=== PATIENT | male | born 1960 | race American Indian/Alaskan Native ===

== ENCOUNTER 2017-05-02 21:31 | Emergency (ER) | payer MEDICAID, OTHER ==
[~2017-05-02] VITALS: Ht 172.7 cm; Wt 77.0 kg
[2017-05-02] MEDS ORDERED: sulfamethoxazole/trimethoprim DS (800/160mg) tablet PO ONE (22:20)
[2017-05-02] MEDS ORDERED: TETanus/Pertussis (Acell)/Diphther VAC/PF (Tdap-Adult) 0.5ml syringe IMVAC ONE (22:20)
[2017-05-02] MEDS ORDERED: ondansetron 4mg rapidly disintigrating tab PO ONE (22:20)
[2017-05-03] MEDS ORDERED: amLODIPine 5mg tablet PO ONE
[2017-05-03] MEDS ORDERED: CEPH250T PO (01:07)
[2017-05-03] MEDS ORDERED: cephalexin 500mg capsule PO ONE (01:10)
[2017-05-03 01:59] VITALS: BP 156/106
== END 2017-05-03 03:01 | disposition home or self-care (01) ==
LOC: ER 21:32
DX: S61.245A Puncture wound with foreign body of left ring finger without damage to nail, initial encounter (principal); F17.200 Nicotine dependence, unspecified, uncomplicated; Z86.73 Personal history of transient ischemic attack (TIA), and cerebral infarction without residual deficits; W49.04XA Ring or other jewelry causing external constriction, initial encounter; Y93.89 Activity, other specified; Y92.89 Other specified places as the place of occurrence of the external cause; Y99.8 Other external cause status
CPT/HCPCS: 73140; 90471; 90715; 99284